=== PATIENT | male | born 1985 | race African-American/Black ===

== ENCOUNTER 2016-11-07 22:04 | Emergency (ER) | payer OTHER ==
[~2016-11-07] VITALS: Ht 180.3 cm; Wt 107.5 kg
[2016-11-07 22:30] VITALS: BP 126/80; PULSE 76; RESP 18; O2SAT 96
--- NOTE | 2016-11-07 22:34 | ED.REPORT ---
HPI-Dyspnea / Wheezing Date of Service Nov 07, 2016 ED Provider: Luc Mendoza MD Pt is a healthy 31 year old male presenting to the ED complaining of SOB and wheezing onset 2 weeks ago. He denies any hx of asthma or use of inhalers. He states that he has had a cold for the last 2 weeks. Denies any other symptoms at this time. Nursing Notes Stated Complaint: SOB Chief Complaint: Respiratory Complaints Nursing Notes Reviewed: Yes Allergies: Coded Allergies: No Known Allergies (Unverified , 11/07/16) Scheduled Prednisone (PredniSONE) 20 Mg Tablet 20 MG PO TID Scheduled PRN Benzonatate (Benzonatate) 200 Mg Capsule 200 MG PO TID PRN PRN For Cough General Time Seen by MD: 22:31 Chief Complaint Shortness of breath Hx Obtained From: Patient Arrived By: Walk-in Sudden in Onset?: No Onset Occurred: More than a week ago... (2 weeks) Symptom Duration: Since onset Severity: Current: No pain currently Severity: Maximum: No pain Recent Healthcare: No recent doctor visit, No recent hospitalization Similar Sx Previous: No Past Medical History Past Medical History healthy Denies: Asthma Past Surgical History denies Smoking History Never Smoker Social History Alcohol Use: Denies alcohol use Drug Use: Denies drug use Ambulatory Status Independent Review of Systems Constitutional: Denies: Fever, Weakness - generalized Respiratory: Reports: Non-productive cough, Shortness of breath, Wheezing Complete sys rev & neg: except as marked. GI: Denies: Vomiting Physical Exam Initial Vital Signs Vital Signs (First) Date Time Temp Pulse Resp B/P Pulse Ox O2 Delivery O2 Flow Rate FiO2 11/07/16 22:30 36.8 76 18 126/80 96 Room Air Initial VS: Reviewed, Vital signs normal Head / Eyes: Atraumatic, Normocephalic, PERRL ENT: Mucous membranes moist, Conjunctiva normal, No scleral icterus Abdomen / GI: Soft, Non-tender, No guarding, No rebound, No distention Extremities: Vascular intact, Neuro intact, No swelling, No tenderness Skin: Warm, Dry, No cyanosis Neurologic: Alert, Oriented, Nonfocal Psychiatric: Mood/affect normal, Behavior normal, Normal thought content General/Constitutional: Awake, Alert, Well appearing Respiratory / Chest: Atraumatic Wheezing / Retractions: Positive: Wheeze insp/exp diffuse (Tight, in all law ) No focal changes. Decreased air movement. Cardiovascular: Heart rate NL, Regular rhythm, Heart sounds NL, Peripheral circulation NL Interpretation & Diagnostics Lab Results Interpretation Result Diagram: 11/07/168 11/07/16 2258 Test 11/07/16 22:58 White Blood Count 7.8th/mm3 (3.8-10.1) Red Blood Count 5.13mil/mm3 (4.40-5.80) Hemoglobin 14.0g/dL (13.8-17.2) Hematocrit 41.6% (41.0-50.0) Mean Corpuscular Volume 81.1fL (81-100) Mean Corpuscular Hemoglobin 27.3pg (27.0-35.0) Mean Corpuscular Hemoglobin Concent 33.7% (32.0-37.0) Red Cell Distribution Width 13.2% (12.3-15.4) Platelet Count 274bil/L (150-400) Neutrophils (%) (Auto) 37.1% (40-74) Lymphocytes (%) (Auto) 41.8% (14-46) Monocytes (%) (Auto) 5.4% (4-12) Eosinophils (%) (Auto) 15.1% (0-5) Basophils (%) (Auto) 0.5% (0-3) Sodium Level 138mEq/L (134-144) Potassium Level 4.3mEq/L (3.5-5.2) Chloride Level 103mEq/L (97-108) Carbon Dioxide Level 23mmol/L (18-29) Blood Urea Nitrogen 15mg/dL (6-20) Creatinine 0.96mg/dL (0.76-1.27) Estimat Glomerular Filtration Rate 96mL/min (>59) Glucose Level 108mg/dL (60-99) Calcium Level 9.6mg/dL (8.5-10.1) Total Bilirubin 0.4mg/dL (0.0-1.2) Aspartate Amino Transf (AST/SGOT) 37U/L (0-50) Alanine Aminotransferase (ALT/SGPT) 29U/L (0-44) Alkaline Phosphatase 89U/L (25-150) Troponin T 0.010ug/L (0.0-0.011) Pro-B-Type Natriuretic Peptide 5.00pg/mL (0-86) Total Protein 7.4g/dL (6.4-8.4) Albumin 4.0g/dL (3.4-5.0) Hold Connors Top Tube Received (Received) Lab values outside NL range: no clinical significance. ECG Interpretation ECG Interpretation: Early repolarization Time: 22:49 Interpreted by: ED physician Normal ECG Interpretation: Normal rate (67), Normal sinus rhythm X-Ray Chest Interpretation Chest Xray Interpretation: Normal. Left hemidiaphragm of uncertain significance. 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 He presents with trouble breathing. He has had a cold and bronchitis symptoms for the last 1-2 weeks and now has developed significant wheezing and chest tightness. Chest x-ray was negative. He was given a nebulizer treatments with good clearing. He was also started on steroids. He will be maintained on oral albuterol inhaler. 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 Re-Evaluation/Progress #1: Time of Eval: 23:32 Patient Status: Condition improved Re-Evaluation/Progress Note: Pt breathing improved with the nebulizer. Stil lwheezing but moving air much better. Pt feels much better, no longer using accessory muscles in respiration. Re-Evaluation/Progress #2: Time of Eval: 00:26 Patient Status: Condition improved Re-Evaluation/Progress Note: Pt breathing much improved. Discussed plan for discharge. Pt understands and agrees. Counseled Regarding: Diagnosis, Lab results, Need for follow-up, When/why to return to ED Discharge & Departure Impression: Primary Impression: Reactive airway disease Asthma severity: mild intermittent Asthma complication type: with acute exacerbation Qualified Code: J45.21 - Mild intermittent asthma with (acute) exacerbation Additional Impression: Acute viral bronchitis Disposition: Home Discharge Condition All VS Reviewed: Yes Condition: Improved Patient Instructions: Reactive Airways Disease (ED) Additional Instructions: You have a viral bronchitis. Certain viruses cause the airways to react with bronchospasm, causing asthma-like wheezing. There is no evidence of pneumonia. Antibiotics would not be helpful. Albuterol inhaler with spacer, 2 puffs every 4 hours as needed for wheezing and cough, 1 dispensed. Prednisone 20 mg by mouth 3 times a day for 5 days, #15 prescribed. Benzonatate (Tessalon perles) 200 mg by mouth 3 times a day, #15 prescribed. It is okay to use [id number] cough medicines with this medication. Tylenol and/or ibuprofen as needed for cough muscle soreness. Scribe Attestation Portions of this note were transcribed by Terry Syed. I, Dr. Mendoza personally performed the history, physical exam and medical decision-making; I reviewed and confirmed the accuracy of the information in the transcribed note. Signed by: Woody Pat, 11/07/16 and 0038. Luc Mendoza MD Nov 07, 2016 22:34 TERRY SYED Nov 07, 2016 22:43
[2016-11-07] MEDS ORDERED: Albuterol-Ipratropium 3 mL Inhalation Solution NEB ONE (22:40)
[2016-11-07] MEDS ORDERED: Albuterol 2.5 mg/3 mL Inhalation Solution NEB ONE ×2 (22:40→23:35)
[2016-11-07 22:44] VITALS: PULSE 70; RESP 16; O2SAT 96
[2016-11-07 23:12] VITALS: BP 127/66; PULSE 83; RESP 19; O2SAT 93
[2016-11-07 23:18] LABS: EOSINOPHILS % (AUTO) 15.1 % (0-5); MONOCYTES % (AUTO) 5.4 % (4-12); Mean Corpuscular Hemoglobin 27.3 pg (27.0-35.0); Mean Corpuscular Volume 81.1 fL (81-100); NEUTROPHILS % (AUTO) 37.1 % (40-74); Platelet Count 274 bil/L (150-400)
[2016-11-07 23:19] LABS: BASOPHILS % (AUTO) 0.5 % (0-3)
[2016-11-07] MEDS ORDERED: _Proair 200 Puff/8.5 GM Inhaler INHALATION PRN (23:35)
[2016-11-07 23:47] LABS: TROPONIN T 0.01 ug/L (0.0-0.011)
[2016-11-08 00:20] VITALS: BP 125/67; PULSE 91; RESP 18; O2SAT 96
[2016-11-08] MEDS ORDERED: PRE20 PO (00:35)
[2016-11-08] MEDS ORDERED: BENZ200C44 PO (00:35)
[2016-11-08 00:54] VITALS: BP 128/82; PULSE 88; RESP 17; O2SAT 97
--- NOTE | 2016-11-08 08:26 | DRSVH ---
PROCEDURE: X-RAY CHEST, TWO VIEWS ([id number]) INDICATIONS: new onset wheezing, dyspnea TECHNIQUE: 2 views of the chest were acquired. COMPARISON: None. FINDINGS: Surgical changes and devices: None. Lungs and pleura: No pleural effusions or pneumothorax. Lungs are clear. Mediastinum: Mediastinal contours are normal. Heart size is normal. Bones and chest wall: No suspicious bony abnormalities. Soft tissues appear unremarkable. IMPRESSION: No acute disease Dictated by: Khris Farr M.D. on 11/08/2016 at 8:23 Approved by: Khris Farr M.D. on 11/08/2016 at 8:24
== END 2016-11-08 00:55 | disposition home or self-care (01) ==
LOC: SED 22:04
DX: J45.21 Mild intermittent asthma with (acute) exacerbation (principal); J20.8 Acute bronchitis due to other specified organisms
CPT/HCPCS: 36415; 71020; 80053; 83880; 84484; 85025; 93005; 99285; J7613; J7620